=== PATIENT | male | born 1960 | race Caucasian/White ===

== ENCOUNTER → 2016-12-20 08:54 | Outpatient (CLI) | payer MEDICAID ==
[2015-08-25 03:48] VITALS: BMI 35.7
[~2016-12-20 08:54] MED LIST: ATIVAN1 MG PO; BACTROBAN 22 GM22 GM TP; CARDIZEM CD240 MG PO; CELEXA20 MG PO; CELEXA40 MG PO; COLACE100 MG PO; COUMADIN5 MG PO; DEPAKOTE500 MG PO; DOXYCYCLINE HY100 M2 PO; FERROUS SULFAT325 MG PO; FLOVENT HFA 11012 GM INH; GLUCOPHAGE1000 MG PO; HUMALOG 30100 UNITS/ SC; IPRAT-ALBUT 0.5-3 ML UPD; JANUVIA100 MG PO; LAMICTAL200 MG PO; LANOXIN125 MCG PO; LANTUS SOL100 UNIT/1 SQ; LISINOPRIL10 MG GT; LOPRESSOR25 MG PO; LOVENOX120 MG/0.8 SQ; MULTAQ400 MG PO; NORCO 5/325 TAB1 TA1 PO; OMEPRAZOLE20 M1 PO; PRAVACHOL40 MG PO; PRINIVIL10 MG PO; SINGULAIR10 MG PO; TOPROL XL25 MG PO; ULTRAM50 MG PO; XARELTO20 MG PO; ZESTORETIC 10/11 TAB PO
--- NOTE | 2017-01-07 09:15 | EC ---
PATIENT:JERSEY DO DATE OF SERVICE: 12/20/16 SEX: M MEDICAL RECORD: [id number] DATE OF : 62 LOCATION:[facility] AGE OF PATIENT: 56 ADMISSION DATE: 12/20/16 REFERRING PHYSICIAN: INTERPRETING PHYSICIAN: PAULA CHRISTIAN MD ECHOCARDIOGRAM REPORT ECHO CHARGES 4 ECHO COMPLETE CLINICAL DIAGNOSIS: CHF ECHOCARDIOGRAPHIC MEASUREMENTS (adult normal given) AC root (d.<3.7cm) 3.5 cm LV Septum d (<1.2 cm> 1.6 cm Valve Excursion 2.0 cm LV Septum (systole) 1.8 cm Left Atria (s.<4.0cm> 3.2 cm LVPW d(<1.2cm) 1.5 cm RV (d.<2.3cm) 2.4 cm LVPW (sytole) 1.8 cm LV diastole(<5.6CM) 5.4 cm MV E-F(>70mm/sec) cm LV systole 3.7 cm LVOT Diameter 1.9 cm MV exc.(>10mm) 1.8 cm Est.ejection fraction (50-75%) % Pericardial Effusion N DOPPLER: LVIT cm/sec A 37.0 cm/sec E 120 cm/sec LA cm/sec RVSP 22 mmHg LVOT 139 cm/sec AOP1/2T 399 m/s Asc. Ao 182 cm/sec RVOT 127 cm/sec RA cm/sec PA 136 cm/sec AV Gradient Peak 13.23mmHg AV Mean 6.29 mmHg AV Area 3.0 cm MV Gradient Peak 6.45 mmHg MV Mean 2.45 mmHg MV Area cm COMMENTS: Industrial Analyst: 2 MEGAN ECHEVERRIA Leave Coordinator: 4 Dr. Christian TAPE# PACS DATE OF SERVICE: 12/20/2016 PROCEDURE: Transthoracic echocardiogram. FINDINGS: 1. Left ventricle has moderate concentric left ventricular hypertrophy. The overall ejection fraction is 60%. Inflow characteristics are normal. There are no regional wall motion abnormalities. 2. The left atrium is in upper limits of normal. 3. The right atrium is normal in size and normal in function. ECHOCARDIOGRAM REPORT [id number] JERSEY DO 4. The right ventricle is normal in size and normal in function. 5. Aortic valve has mild aortic regurgitation. 6. Mitral valve is structurally normal. No obvious mitral regurgitation. 7. Tricuspid valve has trace tricuspid regurgitation. Normal right ventricular systolic pressures. 8. Pulmonic valve is grossly normal. CONCLUSION: The patient has evidence of hypertensive heart disease with mild aortic regurgitation. TRANSINT:[id number] Voice Confirmation ID: [id number] DOCUMENT ID: [id number] PAULA CHRISTIAN MD at 0915 CC: [id number] DICTATION DATE: 12/25/16 1139 VP CONSTRUCTION: 12/25/16 1212 DEP CLI 12/20/[address] [id number]
== END | disposition home or self-care (01) ==
LOC: D.ECHO 08:54
DX: I50.9 Heart failure, unspecified (principal); I48.92 Unspecified atrial flutter

== ENCOUNTER 2017-04-20 13:53 | Emergency (ER) | payer MEDICAID ==
[2015-08-25 03:48] VITALS: BMI 35.7
== END 2017-04-20 15:35 | disposition home or self-care (01) ==
LOC: D.ER 13:53
DX: M17.12 Unilateral primary osteoarthritis, left knee (principal); M87.052 Idiopathic aseptic necrosis of left femur; K21.9 Gastro-esophageal reflux disease without esophagitis; I10 Essential (primary) hypertension

== ENCOUNTER 2018-09-01 09:43 | Emergency (ER) | payer MEDICAID ==
[~2018-09-01] VITALS: Ht 162.6 cm; Wt 86.4 kg
[2018-09-01 09:53] VITALS: Ht 162.6 cm; Wt 86.4 kg
[2018-09-01 10:15] LABS: BASOPHILS 1.5 % (0-2); HEMATOCRIT 41.1 % (42.0-54.0); HEMOGLOBIN 14.3 g/dL (13.5-17.5); IMMATURE GRANULOCYTES 0.2 % (0-5); LYMPHOCYTES 28.1 % (15-50); MCH 30.1 pg (26.0-34.0); MCHC 34.8 g/dL (31.0-37.0); MCV 86.5 fL (80.0-100.0); MEAN PLATELET VOLUME 10.3 fL (7.4-10.4); MONOCYTES 7.3 % (2-11); NEUTROPHILS 61.9 % (40-80); RBC 4.75 10x6/uL (4.20-6.10); RDW 13.2 % (11.5-14.5); WBC 8.7 10x3/uL (4.8-10.8)
[2018-09-01 10:16] LABS: PLATELET COUNT 252 10x3/uL (130-400)
[2018-09-01 10:28] LABS: ALBUMIN 3.6 g/dL (3.4-5.0); ANION GAP 18.1 mmol/L (8-16); BILIRUBIN - TOTAL 0.96 mg/dL (0.2-1.3); CALCIUM 9.3 mg/dL (8.5-10.1); CREATININE - SERUM 1.1 mg/dL (0.6-1.3); MAGNESIUM - SERUM 1.5 mg/dL (1.8-2.4); POTASSIUM - SERUM 4.1 mmol/L (3.5-5.1); PROTEIN - SERUM 7.5 g/dL (6.4-8.2)
[2018-09-01 10:31] LABS: APPEARANCE HAZY (CLEAR); COLOR YELLOW (YELLOW); GLUCOSE 1000 mg/dL (NEGATIVE); NITRITE NEGATIVE (NEGATIVE); PROTEIN 1+ mg/dL (NEGATIVE); SPECIFIC GRAVITY 1.025 (1.005-1.020)
[2018-09-01 10:32] LABS: BILIRUBIN NEGATIVE (NEGATIVE); KETONE MODERATE mg/dL (NEGATIVE); UROBILINOGEN NORMAL (NORMAL)
[2018-09-01 10:34] LABS: UDS - AMPHET NEGATIVE QUAL (NEGATIVE); UDS - BARB NEGATIVE QUAL (NEGATIVE); UDS - BENZO NEGATIVE QUAL (NEGATIVE); UDS - COCAINE NEGATIVE QUAL (NEGATIVE); UDS - OPIATE NEGATIVE QUAL (NEGATIVE); UDS - PCP NEGATIVE QUAL (NEGATIVE); UDS - THC NEGATIVE QUAL (NEGATIVE)
[2018-09-01 10:35] LABS: BACTERIA MODERATE /hpf (NONE SEEN); EPITHELIAL CELLS 0-5 /hpf (0-5); RED CELLS - URINE 0-5 /hpf (0-5)
[2018-09-01 10:36] LABS: YEAST >1+ WITH HYPHAE /hpf (NONE SEEN)
--- NOTE | 2018-09-01 11:15 | NUR ---
DR. CHERY NOTIFIED AND SITTER ORDERED. SITTER AT BEDSIDE. NOTIFIED CHARGE NURSE AND ATTENDING IN REGARDS TO ASSESSMENT FINDINGS. RESOURCES GIVEN TO PT SAFETY PLAN INITIATED.
[2018-09-01] MEDS ORDERED: LEVAQUIN750 MG PO (18:22)
[2018-09-01 21:06] VITALS: BP 154/97
== END 2018-09-01 21:47 ==
LOC: D.ER 09:43
PROVIDERS: Family Medicine
DX: R45.851 Suicidal ideations (principal); F32.9 Major depressive disorder, single episode, unspecified; E11.65 Type 2 diabetes mellitus with hyperglycemia; Z91.19 Patient's noncompliance with other medical treatment and regimen; N39.0 Urinary tract infection, site not specified